=== PATIENT | male | born 1980 | race Caucasian/White ===

== ENCOUNTER 2023-06-15 16:00 | Emergency (ER) | payer MEDICARE ==
[~2023-06-15] VITALS: Ht 167.6 cm; Wt 63.5 kg
[~2023-06-15 16:00] MED LIST: ALBU90OI INH; ERYT.5TO LEFTEYE; IBUP800 PO; Norco 10-325 T1 EACH PO; PENVK500 PO; PROCODE120 PO; RXCLIN PO; SPACE CHAMBER1 EACH MC; Zithromax250 MG PO
[2023-06-15 16:50] LABS: Albumin, Blood 3.1 g/dL (3.4-5.0); Albumin/Globulin Ratio 0.6 (0.8-1.8); Bilirubin, Total 0.3 mg/dL (0.1-1.0); Bun/Creatinine Ratio 15.3 (12.0-20.0); Calcium, Blood 8.8 mg/dL (8.5-10.1); Creatinine, Blood 0.59 mg/dL (0.60-1.20); Globulin, Blood 5.2 g/dL (2.2-4.0); Total Protein, Blood 8.3 g/dL (6.4-8.2)
[2023-06-15 16:52] LABS: Hematocrit 40.9 % (37.0-53.0); Mean Corpuscular HGB Conc 34.2 g/dL (31.5-36.5); Mean Corpuscular Volume 85 fL (80-100); Mean Platelet Volume 9.1 fL (9.1-12.4); Platelet Count 473 K/mm3 (150-400); RDW Coefficient Variation 12.6 % (11.7-14.2); RDW Standard Deviation 38.8 fL (35.1-46.3); Red Blood Cell Count 4.82 M/mm3 (4.30-5.90); White Blood Cell Count 28.74 K/mm3 (4.00-11.30)
[2023-06-15 17:27] LABS: BAND PERCENT MAN 23 % (0-8); BASOPHILS PERCENT MAN 0 % (0-2); EOSINOPHILS PERCENT MAN 0 % (0-6); LYMPHOCYTES ABSOLUTE MAN 0.57 K/mm3 (0.84-5.20); LYMPHOCYTES PERCENT MAN 2 % (21-46); MONOCYTES ABSOLUTE MAN 1.72 K/mm3 (0.16-1.47); MONOCYTES PERCENT MAN 6 % (4-13); NEUTROPHILS ABSOLUTE MAN 26.44 K/mm3 (1.96-9.15); SEG NEUTROPHILS PERCENT MAN 69 % (41-73); TOTAL CELLS COUNTED 100
[2023-06-15 20:00] VITALS: BP 134/76
== END 2023-06-15 21:00 | disposition short-term general hospital (02) ==
LOC: ER 16:00
PROVIDERS: Physician Assistant
DX: A41.9 Sepsis, unspecified organism (principal); N49.2 Inflammatory disorders of scrotum; T83.69XA Infection and inflammatory reaction due to other prosthetic device, implant and graft in genital tract, initial encounter; F17.200 Nicotine dependence, unspecified, uncomplicated; Z88.1 Allergy status to other antibiotic agents
CPT/HCPCS: 36415; 74177; 76870; 80053; 83605; 83690; 83735; 84145; 85025; 93005; 93010; 96365; 96375; 99285-25; A9270; J0696; J1170; J3370; J7030; J7050; Q9967